=== PATIENT | female | born 1970 | race American Indian/Alaskan Native ===

== ENCOUNTER 2017-01-04 06:51 | Emergency (ER) | payer MEDICAID ==
[2017-01-04 07:26] VITALS: BP 135/82
--- NOTE | 2017-01-04 08:06 | Emergency Department Report ---
ED Back Pain/Injury HPI - General Chief Complaint: Back Pain/Injury Stated Complaint: LOWER BACK PAIN Time Seen by Provider: 01/04/17 07:29 Source: patient, family Limitations: No Limitations - History of Present Illness Initial Comments: Patient here reports pain in upper and lower back. She reports pain radiated down ti thighs. Denies any fever or chills. Denies urinary frequency, urgency or burning. Denies nausea or vomiting. Denies any loss of bowel or bladder function. Should her back at work while lifting in 2006 and she's been having ongoing pain since. She said she does have a doctor and she will be able to see her doctor until later on this month. Pain is 8-10 and a can. Denies any new injuries. Patient has a history of anxiety, bipolar disorder, arthritis and depression. She is also reporting that she has arthritis in her spine is that she's had multiple x-rays and MRIs done and they told her that she has arthritis in her spine. Last menstrual period was 12/24/2016. She is she is on Flexeril and Ultram at home and it's not helping. Pain is worse with walk and better with resting. MD Complaint: back pain Onset/Timin -: days(s) Similar Symptoms Previously: Yes Place: home Radiation: other (Both thighs) Severity scale (0 -10): 8 Quality: aching Consistency: constant Improves With: immobilization Worsens With: movement, walking Context: while lifting, bending Associated Symptoms: denies: confusion, weakness, chest pain, numbness, difficulty walking, cough, difficulty urinating, diaphoresis, incontinence, fever/chills, constipation, headaches, abdominal pain, loss of appetite, malaise , nausea/vomiting, rash, seizure, shortness of breath, syncope Treatments Prior to Arrival: prescription analgesics - Related Data Previous Rx's Medication Instructions Recorded Last Taken Type Butalb/Acetamin/Caff 50-325-40 1 each PO Q6H PRN #30 tablet 12/12/13 Unknown Rx [Fioricet] Promethazine [Phenergan] 25 mg PO Q6H PRN #20 tablet 12/12/13 Unknown Rx Acetaminophen/Codeine 1 tab PO Q6H PRN #30 tab 01/20/14 Unknown Rx [Acetaminophen-Codeine #3 TAB] Ibuprofen [Motrin 800 MG tab] 800 mg PO Q8H PRN #30 tablet 01/20/14 Unknown Rx Methocarbamol [Robaxin-750] 750 mg PO BID PRN #12 tablet 01/04/17 Unknown Rx traMADol [Ultram] 50 mg PO Q6HR PRN #20 tab 01/04/17 Unknown Rx Allergies Allergy/AdvReac Type Severity Reaction Status Date / Time No Known Allergies Allergy Unverified 01/04/17 07:26 ED Review of Systems ROS: Stated complaint: LOWER BACK PAIN Other details as noted in HPI Comment: All other systems reviewed and negative Constitutional: no symptoms reported Respiratory: no symptoms reported Cardiovascular: denies: chest pain, palpitations, dyspnea on exertion, orthopnea , edema, syncope, paroxysmal nocturnal dyspnea Gastrointestinal: denies: abdominal pain, nausea, vomiting, diarrhea, constipation, hematemesis, melena, hematochezia Genitourinary: denies: urgency, dysuria, frequency, hematuria, discharge, abnormal menses, dyspareunia Musculoskeletal: back pain, arthralgia. denies: joint swelling, myalgia Skin: denies: rash Neurological: denies: headache, weakness, numbness, paresthesias, confusion, abnormal gait, vertigo ED Past Medical Hx - Past Medical History Previous Medical History?: Yes Hx Arthritis: Yes Hx Headaches / Migraines: Yes (started in 20s and has been off and on since. ) Hx Psychiatric Treatment: Yes (Anxiety, depression, bipolar) Additional medical history: sciatica - Surgical History Past Surgical History?: No - Family History Family history: no significant - Social History Smoking Status: Current Every Day Smoker Substance Use Type: Alcohol Other Social History: Single - Medications Home Medications: Home Medications Medication Instructions Recorded Confirmed Last Taken Type Butalb/Acetamin/Caff 50-325-40 1 each PO Q6H PRN #30 tablet 12/12/13 Unknown Rx [Fioricet] Promethazine [Phenergan] 25 mg PO Q6H PRN #20 tablet 12/12/13 Unknown Rx Acetaminophen/Codeine 1 tab PO Q6H PRN #30 tab 01/20/14 Unknown Rx [Acetaminophen-Codeine #3 TAB] Ibuprofen [Motrin 800 MG tab] 800 mg PO Q8H PRN #30 tablet 01/20/14 Unknown Rx Methocarbamol [Robaxin-750] 750 mg PO BID PRN #12 tablet 01/04/17 Unknown Rx traMADol [Ultram] 50 mg PO Q6HR PRN #20 tab 01/04/17 Unknown Rx ED Physical Exam - General Limitations: No Limitations General appearance: alert, in no apparent distress - Head Head exam: Present: atraumatic, normocephalic, normal inspection - Eye Eye exam: Present: normal appearance, PERRL, EOMI Pupils: Present: normal accommodation - ENT ENT exam: Present: normal exam, normal orophraynx, mucous membranes moist, TM's normal bilaterally, normal external ear exam - Neck Neck exam: Present: normal inspection, full ROM. Absent: tenderness, meningismus, lymphadenopathy - Respiratory Respiratory exam: Present: normal lung sounds bilaterally. Absent: respiratory distress, chest wall tenderness - Cardiovascular Cardiovascular Exam: Present: regular rate, normal rhythm, normal heart sounds. Absent: systolic murmur, diastolic murmur - GI/Abdominal GI/Abdominal exam: Present: soft, normal bowel sounds. Absent: distended, tenderness, guarding, rebound, rigid, organomegaly, mass, bruit, pulsatile mass , hernia - Extremities Exam Extremities exam: Present: normal inspection, full ROM, normal capillary refill , other (clubbing, cyanosis or edema. +2 pulses normal extremities. No neurovascular compromise. Patient able and bleeding without any difficulties.) . Absent: tenderness, pedal edema, joint swelling, calf tenderness - Back Exam Back exam: Present: normal inspection, full ROM, other (negative straight leg raises bilaterally. No saddle anesthesia.). Absent: tenderness, CVA tenderness (R), CVA tenderness (L), muscle spasm, paraspinal tenderness, vertebral tenderness, rash noted - Neurological Exam Neurological exam: Present: alert, oriented X3, normal gait, reflexes normal, other (gross focal neurological deficit). Absent: motor sensory deficit - Psychiatric Psychiatric exam: Present: normal affect, normal mood - Skin Skin exam: Present: warm, dry, intact, normal color. Absent: rash ED Course Vital Signs 01/04/17 07:22 Temperature 98.1 F Pulse Rate 81 Respiratory 16 Rate Blood Pressure 135/82 O2 Sat by Pulse 98 Oximetry - Reevaluation(s) Reevaluation #1: 01/04/17 08:21 Given Decadron 10 mg IM, Toradol 30 mg IM in the emergency room. 01/04/17 08:22 ED Medical Decision Making - Medical Decision Making ED Course: Sima here with back pain that is chronic that she said she reinjured yesterday while bending and lifting objects at work. Patient was given Toradol 30 mg IM, Decadron 10 mg IM . She is neurologically intact and her back exam and neck exam is normal. Patient able to ambulate without any difficulties pre-and post pain medication. Patient discharged home with prescription for Ultram and Flexeril and to follow up with her primary care physician which she says she does have 1 in 3 days. Critical care attestation.: If time is entered above; I have spent that time in minutes in the direct care of this critically ill patient, excluding procedure time. ED Disposition Clinical Impression: Acute exacerbation of chronic low back pain, Lumbar radiculopathy Disposition: TO HOME OR SELFCARE Is pt being admited?: No Does the pt Need Aspirin: No Condition: Stable Instructions: Back Pain (ED), Lumbar Radiculopathy (ED), Core Strengthening Exercises (GEN) Additional Instructions: follow-up with primary care physician for referral to pain management for chronic back pain You can take tramadol and Robaxin for pain but please do not drive or operate heavy machinery as this medication causes drowsiness Prescriptions: Methocarbamol [Robaxin-750] 750 mg PO BID PRN #12 tablet PRN Reason: Muscle Spasm traMADol [Ultram] 50 mg PO Q6HR PRN #20 tab PRN Reason: Pain Referrals: PRIMARY CAREMD [Primary Care Provider] - 01/07/17 Forms: Work/School Release Form(ED)
[2017-01-04] MEDS ORDERED: TORADOL IM ONE (08:27)
[2017-01-04] MEDS ORDERED: DECADRON IM STA (08:27)
[2017-01-04] MEDS ORDERED: ZOFRAN ODT PO ONE (09:20)
[2017-01-04] MEDS ORDERED: DILAUDID IM ONE (09:20)
== END 2017-01-04 09:30 | disposition home or self-care (01) ==
LOC: ED 06:51
DX: M54.16 Radiculopathy, lumbar region (principal); M54.5 Low back pain; G89.29 Other chronic pain; G43.909 Migraine, unspecified, not intractable, without status migrainosus; F17.200 Nicotine dependence, unspecified, uncomplicated
CPT/HCPCS: 96372; 99282; J1100; J1170; J1885; Q0162

== ENCOUNTER 2018-07-15 10:00 | Emergency (ER) | payer OTHER, SELFPAY ==
[2018-07-15 10:11] VITALS: BP 136/86
[2018-07-15] MEDS ORDERED: XYLOCAINE 1% MPF 5 mL INFILTRATI ONE (11:13)
[2018-07-15] MEDS ORDERED: BOOSTRIX IM ONE (11:13)
[2018-07-15] MEDS ORDERED: ULTRAM PO ONE (11:13)
--- NOTE | 2018-07-15 11:17 | Emergency Department Report ---
ED Laceration HPI - HPI Chief Complaint: Wound/Laceration Stated Complaint: LACERATION Occurred When: Today Location: Lower Extremity (left foot) Severity: moderate Tetanus Status: Not up to Date Laceration Symptoms: Yes Pain, No Foreign Body Sensation, No Numbness, No W eakness Other History: This is a 48-year-old -[place] female who presents with a laceration to left dorsal foot. Patient states she was moving a gazebo that her home when the metal part of gazebo scrapped the top of left foot. Patient is unsure of last tetanus vaccine. Reports large amount of bleeding. States she wrapped a jacket around wound to control bleeding and came in for further evaluation. Denies numbness or tingling, swelling, sensation of foreign object, weakness, or paresthesias. ED Review of Systems ROS: Stated complaint: LACERATION Other details as noted in HPI Constitutional: denies: chills, fever Respiratory: denies: cough, shortness of breath, wheezing Cardiovascular: denies: chest pain, palpitations Gastrointestinal: denies: abdominal pain, nausea, diarrhea Skin: lesions (laceration to left foot). denies: rash Neurological: denies: headache, weakness, paresthesias Psychiatric: denies: anxiety, depression ED Past Medical Hx - Past Medical History Previous Medical History?: Yes Hx Arthritis: Yes Hx Headaches / Migraines: Yes (started in 20s and has been off and on since. ) Hx Psychiatric Treatment: Yes (Anxiety, depression, bipolar) Additional medical history: sciatica - Surgical History Past Surgical History?: Yes Additional Surgical History: tubal ligation - Social History Smoking Status: Current Every Day Smoker Substance Use Type: Alcohol - Medications Home Medications: Home Medications Medication Instructions Recorded Confirmed Last Taken Type Butalb/Acetamin/Caff 50-325-40 1 each PO Q6H PRN #30 tablet 12/12/13 Unknown Rx [Fioricet] Promethazine [Phenergan] 25 mg PO Q6H PRN #20 tablet 12/12/13 Unknown Rx Acetaminophen/Codeine 1 tab PO Q6H PRN #30 tab 01/20/14 Unknown Rx [Acetaminophen-Codeine #3 TAB] Ibuprofen [Motrin 800 MG tab] 800 mg PO Q8H PRN #30 tablet 01/20/14 Unknown Rx Methocarbamol [Robaxin-750] 750 mg PO BID PRN #12 tablet 01/04/17 Unknown Rx traMADol [Ultram] 50 mg PO Q6HR PRN #20 tab 01/04/17 Unknown Rx Esomeprazole Magnesium [NexIUM] 40 mg PO QDAY 30 Days capsule. 03/21/18 Unknown Rx Ibuprofen [Motrin 800 MG tab] 800 mg PO Q8HR PRN #15 tablet 07/15/18 Unknown Rx Sulfamethoxazole/Trimethoprim 1 each PO BID #14 tablet 07/15/18 Unknown Rx [Bactrim DS TAB] Laceration Physical Exam - Exam General: Vital signs noted. No distress. Alert and acting appropriately. Wound Length (cm): 2 Laceration Location: Lower Extremity Full Body Front + Back: 1 - 2 cm linear laceration into epidermis, serousanginous drainage, tenderness, no swelling, neurologically intact, strength 5, +2 pedal pulses. Laceration Exam: Yes Normal Distal CMS, No Foreign Body, No Exposed Tendon, Vessel, or Nerve, No Tendon Injury ED Course Vital Signs 07/15/18 10:10 Temperature 98.0 F Pulse Rate 78 Respiratory 20 Rate Blood Pressure 136/86 O2 Sat by Pulse 98 Oximetry - Laceration /Wound Repair Left Anterior Proximal Dorsal Foot Wound Location: lower extremity Wound Length (cm): 2 Wound's Depth, Shape: superficial Wound Explored: no foreign body removed Irrigated w/ Saline (ccs): 8 Betadine Prep?: Yes Anesthesia: 1% Lidocaine Volume Anesthetic (ccs): 2 Wound Repaired With: sutures Suture Size/Type: 4:0 Number of Sutures: 3 Layer Closure?: No Sterile Dressing Applied?: Yes ED Medical Decision Making - Medical Decision Making This is a 48 y.o. female presents with a laceration to left dorsal proximal foot. Patient examined by me. Patient is non-toxic appearing and stable. Areas of pain 2 cm linear laceration into the epidermis, mouth swelling, tenderness. Won't closed with 3 sutures, review note. Given ibuprofen and tetanus vaccine. Discharged home for outpatient treatment with bactrim and ibuprofen. Discussed ER care plan with patient. Patient agreed with plan. F/U with PCP. Critical care attestation.: If time is entered above; I have spent that time in minutes in the direct care of this critically ill patient, excluding procedure time. ED Disposition Clinical Impression: Laceration of foot excluding toes Qualifiers: Encounter type: initial encounter Laterality: left Qualified Code(s): S91.312A - Laceration without foreign body, left foot, initial encounter Disposition: TO HOME OR SELFCARE Is pt being admited?: No Does the pt Need Aspirin: No Condition: Stable Instructions: Suture Care (ED), Laceration (ED) Additional Instructions: Take antibiotics as prescribed for the full course. Keep wound dry and clean for 48 hours. Avoid putting to much tension on wound site. Prop foot up on pillows to decrease swelling. Follow up with Primary Care Provider in 2-3 days. Have sutures removed in 7-10 days by primary care provider or in ER. Return to ER if red, swollen, foul discharge, or fever. Prescriptions: Sulfamethoxazole/Trimethoprim [Bactrim DS TAB] 1 each PO BID #14 tablet Ibuprofen [Motrin 800 MG tab] 800 mg PO Q8HR PRN #15 tablet PRN Reason: Pain , Severe (7-10) Referrals: TRENA BREWSTER MD [Primary Care Provider] - 3-[address] [facility] [Outside] - 3-5 Days [facility] [Outside] - 3-5 Days Forms: Work/School Release Form(ED) Time of Disposition: 13:15
[2018-07-15] MEDS ORDERED: IBUPROFEN PO ONE (11:41)
== END 2018-07-15 13:19 | disposition home or self-care (01) ==
LOC: ED 10:00
DX: S91.312A Laceration without foreign body, left foot, initial encounter (principal); M19.90 Unspecified osteoarthritis, unspecified site; G43.909 Migraine, unspecified, not intractable, without status migrainosus; Z98.51 Tubal ligation status; F17.200 Nicotine dependence, unspecified, uncomplicated; W22.8XXA Striking against or struck by other objects, initial encounter; Y93.89 Activity, other specified; Y92.89 Other specified places as the place of occurrence of the external cause; Y99.8 Other external cause status
CPT/HCPCS: 90471; 90715; 99282

== ENCOUNTER 2018-07-18 08:10 | Emergency (ER) | payer OTHER, SELFPAY ==
[2018-07-18] MEDS ORDERED: NORCO 5/325 PO ONE (09:37)
[2018-07-18] MEDS ORDERED: IBUPROFEN PO ONE (09:37)
--- NOTE | 2018-07-18 10:10 | XRay Report ---
LEFT FOOT RADIOGRAPHS INDICATION: Pain after blunt trauma. COMPARISON: None similar. FINDINGS: AP, lateral and oblique left foot radiographs demonstrate intact bony articulation without focal suspicious erosions. Fourth and fifth toes distally incidentally noted turned down/in. Small dorsal calcaneal spur. Grossly unremarkable soft tissues. CONCLUSION: No acute left foot radiographic abnormality, as described. Thank you for the opportunity to participate in this patient's care.
--- NOTE | 2018-07-18 10:22 | Emergency Department Report ---
ED Extremity Problem HPI - General Chief complaint: Extremity Injury, Lower Stated complaint: LFT FOOT BROKE/PAIN Time Seen by Provider: 07/18/18 09:27 Source: patient Mode of arrival: Ambulatory Limitations: No Limitations - History of Present Illness Initial comments: Patient is a 48-year-old [place] female who is presenting with pain to the left foot. Patient was here 3 days ago after part of a gazebo fell on her left foot. She had stitches placed however she refuses x-ray. The patient states she is continued to be unable to place any weight on the left foot. It is continues to be swelling to the dorsum of the foot. The patient states pain is 10 out of 10. Severity scale (0 -10): 10 Quality: aching Consistency: constant Worsens with: weight bearing, walking, palpation - Related Data Previous Rx's Medication Instructions Recorded Last Taken Type Butalb/Acetamin/Caff 50-325-40 1 each PO Q6H PRN #30 tablet 12/12/13 Unknown Rx [Fioricet] Promethazine [Phenergan] 25 mg PO Q6H PRN #20 tablet 12/12/13 Unknown Rx Acetaminophen/Codeine 1 tab PO Q6H PRN #30 tab 01/20/14 Unknown Rx [Acetaminophen-Codeine #3 TAB] Ibuprofen [Motrin 800 MG tab] 800 mg PO Q8H PRN #30 tablet 01/20/14 Unknown Rx Methocarbamol [Robaxin-750] 750 mg PO BID PRN #12 tablet 01/04/17 Unknown Rx traMADol [Ultram] 50 mg PO Q6HR PRN #20 tab 01/04/17 Unknown Rx Esomeprazole Magnesium [NexIUM] 40 mg PO QDAY 30 Days capsule. 03/21/18 Unknown Rx Ibuprofen [Motrin 800 MG tab] 800 mg PO Q8HR PRN #15 tablet 07/15/18 Unknown Rx Sulfamethoxazole/Trimethoprim 1 each PO BID #14 tablet 07/15/18 Unknown Rx [Bactrim DS TAB] traMADol [Ultram 50 MG tab] 50 mg PO Q6HR PRN #12 tablet 07/15/18 Unknown Rx HYDROcodone/ACETAMINOPHEN 1 each PO Q6HR PRN #12 tablet 07/18/18 Unknown Rx [Hydrocodone-Acetamin 5-325 mg] Allergies Allergy/AdvReac Type Severity Reaction Status Date / Time No Known Allergies Allergy Unverified 01/04/17 07:26 ED Review of Systems ROS: Stated complaint: LFT FOOT BROKE/PAIN Other details as noted in HPI Comment: All other systems reviewed and negative ED Past Medical Hx - Past Medical History Hx Arthritis: Yes Hx Headaches / Migraines: Yes (started in 20s and has been off and on since. ) Hx Psychiatric Treatment: Yes (Anxiety, depression, bipolar) Additional medical history: sciatica - Surgical History Additional Surgical History: tubal ligation - Social History Smoking Status: Current Every Day Smoker Substance Use Type: Alcohol - Medications Home Medications: Home Medications Medication Instructions Recorded Confirmed Last Taken Type Butalb/Acetamin/Caff 50-325-40 1 each PO Q6H PRN #30 tablet 12/12/13 Unknown Rx [Fioricet] Promethazine [Phenergan] 25 mg PO Q6H PRN #20 tablet 12/12/13 Unknown Rx Acetaminophen/Codeine 1 tab PO Q6H PRN #30 tab 01/20/14 Unknown Rx [Acetaminophen-Codeine #3 TAB] Ibuprofen [Motrin 800 MG tab] 800 mg PO Q8H PRN #30 tablet 01/20/14 Unknown Rx Methocarbamol [Robaxin-750] 750 mg PO BID PRN #12 tablet 01/04/17 Unknown Rx traMADol [Ultram] 50 mg PO Q6HR PRN #20 tab 01/04/17 Unknown Rx Esomeprazole Magnesium [NexIUM] 40 mg PO QDAY 30 Days capsule. 03/21/18 Unknown Rx Ibuprofen [Motrin 800 MG tab] 800 mg PO Q8HR PRN #15 tablet 07/15/18 Unknown Rx Sulfamethoxazole/Trimethoprim 1 each PO BID #14 tablet 07/15/18 Unknown Rx [Bactrim DS TAB] traMADol [Ultram 50 MG tab] 50 mg PO Q6HR PRN #12 tablet 07/15/18 Unknown Rx HYDROcodone/ACETAMINOPHEN 1 each PO Q6HR PRN #12 tablet 07/18/18 Unknown Rx [Hydrocodone-Acetamin 5-325 mg] ED Physical Exam - General Limitations: No Limitations General appearance: alert, in no apparent distress - Head Head exam: Present: atraumatic, normocephalic - Eye Eye exam: Present: normal appearance - ENT ENT exam: Present: mucous membranes moist - Neck Neck exam: Present: normal inspection - Respiratory Respiratory exam: Absent: respiratory distress - GI/Abdominal GI/Abdominal exam: Present: soft - Extremities Exam Extremities exam: Present: normal inspection - Expanded Lower Extremity Exam Left Foot/Toe exam: Present: tenderness (to the dorsum of the foot as well as the base of the), swelling (present at the dorsum), laceration (stitches are intact and the wound is clean and dry) Neuro vascular tendon exam: Present: no vascular compromise - Back Exam Back exam: Present: normal inspection - Neurological Exam Neurological exam: Present: alert, oriented X3 - Psychiatric Psychiatric exam: Present: normal affect, normal mood - Skin Skin exam: Present: warm, dry, intact, normal color. Absent: rash ED Course Vital Signs 07/18/18 08:35 Temperature 97.6 F Pulse Rate 94 H Respiratory 16 Rate O2 Sat by Pulse 119 H Oximetry ED Medical Decision Making - Radiology Data [facility] [address] [place] [address] XRay Report Signed Patient: MARIN YOUSIF MR#: [id number] : 1970 Acct:[id number] Age/Sex: 48 / F ADM Date: 07/18/18 Loc: ED Attending Dr: Ordering Physician: BERENICE WALL MD Date of Service: 07/18/18 Procedure(s): XR foot 3+V LT Accession Number(s): [id number] cc: BERENICE WALL MD Fluoro Time In Minutes: LEFT FOOT RADIOGRAPHS INDICATION: Pain after blunt trauma. COMPARISON: None similar. FINDINGS: AP, lateral and oblique left foot radiographs demonstrate intact bony articulation without focal suspicious erosions. Fourth and fifth toes distally incidentally noted turned down/in. Small dorsal calcaneal spur. Grossly unremarkable soft tissues. CONCLUSION: No acute left foot radiographic abnormality, as described. Thank you for the opportunity to participate in this patient's care. Transcribed By: RS Dictated By: MARCLELA ARAUJO MD Electronically Authenticated By: MARCELLA ARAUJO MD Signed Date/Time: 07/18/18 1010 DD/ 1008 TD/TT: 07/18/18 1010 - Medical Decision Making Patient has no fracture of the foot but likely has a bone contusion. Patient will placed an oral dose she was given crutches. Patient states her pain is not controlled with tramadol and Vicodin will be given. Critical care attestation.: If time is entered above; I have spent that time in minutes in the direct care of this critically ill patient, excluding procedure time. ED Disposition Clinical Impression: Foot contusion Qualifiers: Encounter type: subsequent encounter Laterality: left Qualified Code(s): S90.32XD - Contusion of left foot, subsequent encounter Disposition: DC- TO HOME OR SELFCARE Is pt being admited?: No Does the pt Need Aspirin: No Condition: Stable Instructions: Foot Contusion (ED) Referrals: CINDI HAGER MD [Staff Physician] - 3-5 Days Time of Disposition: 10:29
== END 2018-07-18 10:59 | disposition home or self-care (01) ==
LOC: ED 08:10
DX: S90.32XD Contusion of left foot, subsequent encounter (principal); F31.9 Bipolar disorder, unspecified; F41.9 Anxiety disorder, unspecified; M19.90 Unspecified osteoarthritis, unspecified site; G43.909 Migraine, unspecified, not intractable, without status migrainosus; F17.200 Nicotine dependence, unspecified, uncomplicated; Z98.51 Tubal ligation status; X58.XXXD Exposure to other specified factors, subsequent encounter

== ENCOUNTER 2018-07-25 09:34 | Emergency (ER) | payer SELFPAY ==
[2018-07-25 09:47] VITALS: BP 112/67
--- NOTE | 2018-07-25 10:02 | Emergency Department Report ---
Suture/Staple Removal - HPI Chief Complaint: Laceration/Recheck/Suture Stated Complaint: WOUND CHECK Time Seen by Provider: 07/25/18 09:54 When Sutures or Queenie Placed: 8-10 Days Ago Wound Location: right anterior foot ED Review of Systems ROS: Stated complaint: WOUND CHECK Other details as noted in HPI Comment: All other systems reviewed and negative ED Past Medical Hx - Past Medical History Previous Medical History?: Yes Hx Arthritis: Yes Hx Headaches / Migraines: Yes (started in 20s and has been off and on since. ) Hx Psychiatric Treatment: Yes (Anxiety, depression, bipolar) Additional medical history: sciatica - Surgical History Past Surgical History?: Yes Additional Surgical History: tubal ligation - Social History Smoking Status: Current Every Day Smoker Substance Use Type: Alcohol - Medications Home Medications: Home Medications Medication Instructions Recorded Confirmed Last Taken Type Butalb/Acetamin/Caff 50-325-40 1 each PO Q6H PRN #30 tablet 12/12/13 Unknown Rx [Fioricet] Promethazine [Phenergan] 25 mg PO Q6H PRN #20 tablet 12/12/13 Unknown Rx Acetaminophen/Codeine 1 tab PO Q6H PRN #30 tab 01/20/14 Unknown Rx [Acetaminophen-Codeine #3 TAB] Ibuprofen [Motrin 800 MG tab] 800 mg PO Q8H PRN #30 tablet 01/20/14 Unknown Rx Methocarbamol [Robaxin-750] 750 mg PO BID PRN #12 tablet 01/04/17 Unknown Rx traMADol [Ultram] 50 mg PO Q6HR PRN #20 tab 01/04/17 Unknown Rx Esomeprazole Magnesium [NexIUM] 40 mg PO QDAY 30 Days capsule. 03/21/18 Unknown Rx Ibuprofen [Motrin 800 MG tab] 800 mg PO Q8HR PRN #15 tablet 07/15/18 Unknown Rx Sulfamethoxazole/Trimethoprim 1 each PO BID #14 tablet 07/15/18 Unknown Rx [Bactrim DS TAB] traMADol [Ultram 50 MG tab] 50 mg PO Q6HR PRN #12 tablet 07/15/18 Unknown Rx HYDROcodone/ACETAMINOPHEN 1 each PO Q6HR PRN #12 tablet 07/18/18 Unknown Rx [Hydrocodone-Acetamin 5-325 mg] Suture Removal Exam - Exam General: Vital signs noted. No distress. Alert and acting appropriately. Wound: No Pathologic Erythema, No Tenderness, No Drainage, No Pus, No Wound Dehiscence Other Systems: All other systems reviewed and are unremarkable. ED Course Vital Signs 07/25/18 09:45 Temperature 97.9 F Pulse Rate 96 H Respiratory 17 Rate Blood Pressure 112/67 O2 Sat by Pulse 97 Oximetry ED Recheck MDM - Medical Decision Making 48-year-old female presents with suture removal of the right foot. 3 Sutures removed without any problems. Discuss small abrasion wound care with patient. Vital signs are normal patient is in no acute distress Discuss follow-up with primary care physician. Critical care attestation.: If time is entered above; I have spent that time in minutes in the direct care of this critically ill patient, excluding procedure time. ED Disposition Clinical Impression: Encounter for removal of sutures Disposition: - TO HOME OR SELFCARE Is pt being admited?: No Does the pt Need Aspirin: No Condition: Stable Instructions: Abrasion (ED) Additional Instructions: Make sure to follow up with the primary care physician as discussed. Take all your medications as you've been prescribed. If you have any worsening symptoms or develop new symptoms please return to ED immediately. Forms: Accompanied Note, Work/School Release Form(ED) Time of Disposition: 10:02
== END 2018-07-25 10:22 | disposition home or self-care (01) ==
LOC: ED 09:34
DX: Z48.01 Encounter for change or removal of surgical wound dressing (principal); T14.8XXD Other injury of unspecified body region, subsequent encounter

== ENCOUNTER 2019-05-22 15:21 | Emergency (ER) | payer SELFPAY ==
[2019-05-22 15:30] VITALS: BP 120/78
--- NOTE | 2019-05-22 15:38 | Emergency Department Report ---
Chief Complaint: Back Pain/Injury Stated Complaint: FALL INJURY/BACK PAIN Time Seen by Provider: 05/22/19 15:31 - HPI History of Present Illness: 48 yo female with hx of DVT on Plavix and Xarelo, hx of Lumbar DDD presents with right flank pain after fall out of a truck 2 days ago. Has taken Excedrin and used ICy hot patches without relief. NO other injuries. Severe achy pain without radiation. - ROS Review of Systems: no fever no bowel bladder incontinence no weakness - Exam Vital Signs: Vital Signs 05/22/19 15:28 Temperature 97.8 F Pulse Rate 76 Respiratory 20 Rate Blood Pressure 120/78 O2 Sat by Pulse 100 Oximetry Physical Exam: normal gait back: +muscle spasm no spine tenderness no ecchymossis appears well MSE screening note: rx for robaxin provided referred to PCP ED Disposition for MSE Clinical Impression: Back contusion Disposition: DC-01 TO HOME OR SELFCARE Is pt being admited?: No Does the pt Need Aspirin: No Condition: Stable Prescriptions: Methocarbamol [Robaxin] 1,000 mg PO QID PRN #20 tablet PRN Reason: Muscle Spasm
== END 2019-05-22 15:39 | disposition home or self-care (01) ==
LOC: ED 15:21
DX: S30.0XXA Contusion of lower back and pelvis, initial encounter (principal); X58.XXXA Exposure to other specified factors, initial encounter; Y93.89 Activity, other specified; Y92.89 Other specified places as the place of occurrence of the external cause; Y99.8 Other external cause status
CPT/HCPCS: 99282